=== PATIENT | female | born 1970 | race Caucasian/White ===

== ENCOUNTER 2018-03-06 21:40 | Emergency (ER) | payer OTHER ==
[~2018-03-06] VITALS: Ht 170.2 cm; Wt 86.2 kg
--- NOTE | 2018-03-06 22:01 | ED GENERAL ADULT ---
History of Present Illness General Chief Complaint: Animal/Insect Bite Stated Complaint: "BIT BY 4 YELLOW JACKETS" Source: patient Exam Limitations: no limitations Vital Signs & Intake/Output Vital Signs & Intake/Output Vital Signs Date Time Temp Pulse Resp B/P B/P Pulse O2 O2 Flow FiO2 Mean Ox Delivery Rate 03/06 2350 98.4 71 18 133/83 99 03/06 2239 98 03/06 2149 98.3 90 20 127/87 97 Room Air ED Intake and Output 03/07 0000 03/06 1200 Intake Total 0 Output Total Balance 0 Intake, Oral 0 Patient 190 lb Weight Weight Reported by Patient Measurement Method Allergies Coded Allergies: No Known Allergies (03/06/18) Reconcile Medications Albuterol Sulfate (Ventolin Hfa) 90 MCG HFA.AER.AD 2 PUF INH Q4-6 PRN PRN wheezing, cough Epinephrine (Epipen 2-Brandyn) 0.3 MG/0.3 ML AUTO.INJCT 1 INJ IM X1 PRN SEVERE ALLERGIC REACTION USE ONLY FOR SEVERE ALLERGIC REACTION AND CALL 911 Hydroxyzine Pamoate 50 MG CAPSULE 1 CAP PO TID PRN itching/swelling Methylprednisolone. (Medrol) 4 MG TAB.DS.PK 1 DP PO AD allergic reaction 6 on day 1 then reduce by one tablet daily until gone Triage Note: PT HERE WITH C/O BURNING TO AREAS OF YELLOWJACKET STINGS. PT WAS BITTEN YESTERDAY WHILE GARDENING. PT REPORTS BITED TO LEFT HAND, LEFT THIGHT AND RIGHT ANKLE. PT STATES SHE HAS BEEN ICING THE AREAS AND TAKING 3 BENADRYLS EVERY 4 HOURS WITHOUT RELIEF. PT REPORTS THAT TODAY SHE FELT LIKE SHE COULDNT BREATH AND HE RCHEST FEELS TIGHT, SPO2 97%RA, PT SPEAKING IN FULL SENTENCES. Triage Nurses Notes Reviewed? yes Onset: Gradual Duration: day(s): Timing: recent history Injury Environment: home Severity: moderate No Modifying Factors: none Associated Symptoms: left hand, left leg swelling, difficulty breathing HPI: 47 yo woman in prior good health presents with left hand, left leg swelling, as well as "tightness in throat" that began at approximately 4pm this afternoon. She notes that yesterday, she was bit by four yellow jackets.... "They came up from the grass and stung me.... I was okay, but then the swelling started this afternoon." She notes no wheezing, chest pain, rashes, dizziness. She is otherwise well. Past History Travel History Traveled to [place] past 21 day No Medical History Any Pertinent Medical History? see below for history Neurological: NONE EENT: NONE Cardiovascular: NONE Respiratory: NONE Gastrointestinal: NONE Hepatic: NONE Renal: NONE Musculoskeletal: NONE Psychiatric: NONE Endocrine: NONE Blood Disorders: NONE Cancer(s): NONE TEXTILE STYLIST/Reproductive: NONE Surgical History Surgical History: none Psychosocial History What is your primary language Setswana Tobacco Use: Never used ETOH Use: occasional use Illicit Drug Use: denies illicit drug use Family History Hx Contributory? No Review of Systems Review of Systems Constitutional: Denies: see HPI. Physical Exam Physical Exam General Appearance: mild distress Comments: Review of Systems - except as otherwise noted in HPI Review of Systems Constitutional:no symptoms. EENTM:no symptoms. Respiratory:no symptoms. Cardiovascular:no symptoms. GI:no symptoms. Genitourinary:no symptoms. Musculoskeletal:no symptoms. Skin:no symptoms. Neurological/Psychological:no symptoms. Hematologic/Endocrine:no symptoms. Immunologic/Allergic:no symptoms. All Other Systems: Reviewed and Negative Physical Exam Physical Exam General Appearance: well developed/nourished, no apparent distress Head: atraumatic, normal appearance Eyes: Bilateral: normal appearance. Ears, Nose, Throat: normal pharynx, normal ENT inspection Neck: normal inspection, supple, full range of motion Respiratory: normal breath sounds, chest non-tender, no respiratory distress, quiet respiration, lungs clear Cardiovascular: regular rate/rhythm Gastrointestinal: normal bowel sounds, soft, non-tender, no organomegaly Back: normal inspection, normal range of motion Extremities: normal inspection, normal capillary refill, normal range of motion, left hand and left calf with diffuse, non pitting edema. Neurologic/Psych: no motor/sensory deficits, awake, alert, oriented x 3 Skin: intact, normal color, warm/dry. no rashes Core Measures ACS in differential dx? No CVA/TIA Diagnosis: No Sepsis Present: No Sepsis Focused Exam Completed? No Progress Differential Diagnoses I considered the following diagnoses in my evaluation of the patient: allergic reaction... i doubt NC, unstable angina Plan of Care: Orders Procedure Date/time Status TROPONIN LEVEL 03/06 2201 Complete COMPREHENSIVE METABOLIC PANEL 03/06 2201 Complete CBC WITHOUT DIFFERENTIAL 03/06 2201 Complete EKG 03/06 2153 Active Laboratory Tests 03/06/18 2214: Anion Gap 12, Estimated GFR > 60, BUN/Creatinine Ratio 24.3, Glucose 108 H, Calcium 9.2, Total Bilirubin 0.2, AST 21, ALT 26, Alkaline Phosphatase 49, Troponin I < 0.01, Total Protein 6.6, Albumin 3.5, Globulin 3.1, Albumin/ Globulin Ratio 1.1, CBC w Diff NO MAN DIFF REQ, RBC 4.17 L, MCV 87.3, MCH 30.2, MCHC 34.6, RDW 13.1, MPV 8.2, Gran % 68.9, Lymphocytes % 22.1, Monocytes % 5.8, Eosinophils % 2.9, Basophils % 0.3, Absolute Granulocytes 6.4, Absolute Lymphocytes 2.0, Absolute Monocytes 0.5, Absolute Eosinophils 0.3, Absolute Basophils 0 Initial ED EKG: sinus, borderline r wave progression, no acute changes. Departure Departure Disposition: HOME OR SELF CARE Condition: Stable Clinical Impression Primary Impression: Allergic reaction Referrals: Rosario BERRY,[facility] Departure Forms: Customer Survey General Discharge Information Prescriptions: Current Visit Scripts Methylprednisolone. (Medrol) 1 DP PO AD #1 DP 6 on day 1 then reduce by one tablet daily until gone Hydroxyzine Pamoate 1 CAP PO TID PRN itching/swelling #90 CAP Albuterol Sulfate (Ventolin Hfa) 2 PUF INH Q4-6 PRN PRN wheezing, cough #1 INHAL Epinephrine (Epipen 2-Brandyn) 1 INJ IM X1 PRN SEVERE ALLERGIC REACTION #1 KIT USE ONLY FOR SEVERE ALLERGIC REACTION AND CALL 911 Comments 03/06/18, 23:48... pt feeling better... labs benign... sent rx for supportive meds/epi pen, encouraged close follow up, discussed at great length. Critical Care Note Critical Care Note Critical Care Time: non-applicable
[2018-03-06 22:32] LABS: ABSOLUTE BASOPHIL COUNT 0 /CUMM (0.0-0.2); ABSOLUTE EOSINOPHIL COUNT 0.3 /CUMM (0.0-0.7); ABSOLUTE GRANULOCYTE CT 6.4 /CUMM (1.4-6.5); ABSOLUTE MONOCYTE COUNT 0.5 /CUMM (0.10-0.60); BASOPHIL % 0.3 % (0.0-2.0); EOSINOPHIL % 2.9 % (0-5); GRANULOCYTE % 68.9 % (42.2-75.2); HEMATOCRIT 36.4 % (37-47); MEAN CORPUSCULAR HGB 30.2 PG (27.0-31.0); MEAN CORPUSCULAR HGB CONC 34.6 G/DL (33.0-37.0); MEAN CORPUSCULAR VOLUME 87.3 FL (81.0-99.0); MEAN PLATELET VOLUME 8.2 FL (7.4-10.4); PLATELET COUNT 324 /CUMM (130-400); RBC DISTRIBUTION WIDTH 13.1 % (11.5-14.5); RED BLOOD CELL CT 4.17 /CUMM (4.20-5.40); WHITE BLOOD CELL COUNT 9.2 /CUMM (4.8-10.8)
[2018-03-06] MEDS ORDERED: MEDROL4 M2 PO (23:09)
[2018-03-06] MEDS ORDERED: EPIPEN 2-P0.3 MG/0.3 IM (23:09)
[2018-03-06] MEDS ORDERED: HYDROXYZINE PAM50 M1 PO (23:09)
[2018-03-06] MEDS ORDERED: VENTOLIN HFA18 GM INH (23:09)
[2018-03-06 23:50] VITALS: BP 133/83
== END 2018-03-07 00:03 ==
LOC: ERH 21:40
PROVIDERS: Pediatrics
DX: T63.441A Toxic effect of venom of bees, accidental (unintentional), initial encounter (principal)
CPT/HCPCS: 1263; 93005; 93010; 96374; 96375; J1200; J2930